=== PATIENT | male | born 1935 | race Caucasian/White ===

== ENCOUNTER 2022-01-24 14:51 | Inpatient (IN) | payer BC ==
[2022-01-24 15:22] VITALS: BP 108/69; PULSE 82; RESP 19; TEMP 98.3; BMI 24.0
[2022-01-24] MEDS ORDERED: LIDOCAINE HCL 5% TOP OINTMENT 50 GM TUBE TP ONE (16:54)
[2022-01-24] MEDS ORDERED: ACETAMINOPHEN 1000 MG/100 ML BAG IVPB ONE (16:55)
[2022-01-24] MEDS ORDERED: ACETAMINOPHEN INJECTION 100 ML IVPB ONE (17:38)
[2022-01-24 18:13] LABS: BASO % 0.3 % (0-2.0); EOS % 4.9 % (0-4.5); HEMATOCRIT 31.1 % (35.4-49); HEMOGLOBIN 9.7 GM/dL (11.7-16.9); LYMPH % 28.7 % (8-40); MCH 26.1 pg (25.7-33.7); MCHC 31.1 g/dl (32.0-35.9); MEAN CELL VOLUME 84.1 fl (80-96); MEAN PLT VOLUME 7.6 fl (7.5-11.1); MONO % 4.3 % (3.8-10.2); NEUT % 61.8 % (42.8-82.8); PLATELET COUNT 202 10^3/uL (134-434); RBC 3.69 M/mm3 (4.00-5.60); RDW 20.9 % (11.9-15.9); WHITE BLOOD COUNT 5.1 K/mm3 (4.0-10.0)
[2022-01-24 18:36] LABS: ANISOCYTOSIS 1+; MACROCYTOSIS 0
[2022-01-24 18:44] LABS: CHLORIDE 106 mmol/L (98-107); SODIUM 140 mmol/L (136-145)
[2022-01-24 18:46] LABS: CALCIUM 9.5 mg/dL (8.5-10.1)
[2022-01-24 18:47] LABS: ANION GAP 12 MMOL/L (8-16); BLOOD UREA NITROGEN 60.8 mg/dL (7-18); CO2 21 mmol/L (21-32); GLUCOSE,RANDOM 146 mg/dL (74-106)
[2022-01-24 18:50] LABS: CREATININE 2.8 mg/dL (0.55-1.3); SGOT/AST 24 U/L (15-37); SGPT/ALT 28 U/L (13-61)
[2022-01-24 18:51] LABS: BILIRUBIN,TOTAL 0.4 mg/dL (0.2-1)
[2022-01-24 18:53] LABS: ALK PHOS 90 U/L (45-117)
[2022-01-24 18:54] LABS: N-TERMINAL BNP 14304.6 pg/ml (5-450)
[2022-01-24] MEDS ORDERED: ASPIRIN 81 MG CHEWABLE TABLETS PO ONE (19:22)
[2022-01-24] MEDS ORDERED: ASPIRIN 81 MG CHEWABLE TABLETS ONE (20:35)
[2022-01-25] MEDS ORDERED: TAMSULOSIN HCL 0.4 MG CAP PO SCH (08:30)
[2022-01-25] MEDS ORDERED: MEMANTINE HCL 10 MG TABLET (FP) PO SCH (10:00)
[2022-01-25] MEDS ORDERED: SPIRONOLACTONE 25 MG TABLET PO SCH (10:00)
[2022-01-25] MEDS ORDERED: ASPIRIN COATED 81 MG TABLET.EC PO SCH (10:00)
[2022-01-25] MEDS ORDERED: HEPARIN NA (PORCINE) 5,000 UNITS/ML 1ML VIAL SQ SCH (10:00)
[2022-01-25] MEDS ORDERED: ATORVASTATIN CA 40 MG TABLET (FP) PO SCH (22:00)
== END 2022-01-25 01:30 | disposition left against medical advice (07) | DRG 684 ==
LOC: JER 14:51 → JERBED 20:54
PROVIDERS: ADMIT Internal Medicine; ATTEND Internal Medicine
DX: N17.9 Acute kidney failure, unspecified (principal); R55 Syncope and collapse; E11.9 Type 2 diabetes mellitus without complications; I45.10 Unspecified right bundle-branch block; Z99.81 Dependence on supplemental oxygen; Z87.891 Personal history of nicotine dependence; I11.0 Hypertensive heart disease with heart failure; I50.9 Heart failure, unspecified; R42 Dizziness and giddiness; R53.1 Weakness
CPT/HCPCS: 0241U-QW; 36415; 70450-TC; 71045-TC-FY; 72125-TC; 72170-TC-FY; 80053; 82962; 83880; 84484; 85025; 93005; 93010; 99285-25